=== PATIENT | male | born 1950 ===

== ENCOUNTER 2018-10-15 07:12 | Outpatient (CLI) | payer OTHER | END 2018-10-15 07:14 | disposition home or self-care (01) | LOC: SONOGRAMA 07:12 | DX: R97.20 Elevated prostate specific antigen [PSA] (principal) ==

== ENCOUNTER 2024-10-09 07:41 | Outpatient (CLI) | payer OTHER | END 2024-10-09 07:48 | disposition home or self-care (01) | LOC: SONOGRAMA 07:41 | PROVIDERS: ATTEND Urology | DX: C61 Malignant neoplasm of prostate (principal); N40.1 Benign prostatic hyperplasia with lower urinary tract symptoms; R97.20 Elevated prostate specific antigen [PSA] ==